=== PATIENT | male | born 1955 | race Caucasian/White ===

== ENCOUNTER 2016-05-20 10:38 | Day surgery (SDC) | payer OTHER ==
[2016-05-14 17:46] LABS: HEMATOCRIT 48.5 % (40.0-51.0); HEMOGLOBIN 16.2 g/dL (13.6-17.8)
[2016-05-14 17:58] LABS: BUN (BLOOD UREA NITROGEN) 14 MG/DL (6-23); CALCIUM, SERUM 9.4 MG/DL (8.5-10.4); CHLORIDE, SERUM 108 MMOL/L (96-112); CO2 (CARBON DIOXIDE) 28 MMOL/L (24-34); CREATININE 1.07 MG/DL (0.70-1.30); GFR AFRICAN AMERICAN 86 ML/MIN (>=60); GFR NON AFRICAN AMERICAN 74 ML/MIN (>=60); GLUCOSE, SERUM 106 MG/DL (60-99); POTASSIUM, SERUM 4.5 MMOL/L (3.5-5.3); SODIUM, SERUM 145 MMOL/L (135-148)
[2016-05-14 17:59] LABS: ASCORBIC ACID (UR NOT ORDER) NEG (NEG); BILIRUBIN, URINE NEGATIVE (NEG); KETONE, URINE NEGATIVE (NEG); LEUKOCYTE ESTERASE(NOT OR NEG (NEG); WBC (NOT ORDERED) (RFLEX) 2 (0-5)
--- NOTE | ~2016-05-20 | OP ---
Record Of Operation [facility] [address] [place]. [address] NAME: DORIAN MONAHAN : 51 STATUS : [facility]#: [id number] AGE: 60 ADM/REG DATE : 05/20/16 MR#: [id number] REPORT SERV DATE: 05/20/16 DICTATED BY: SIXTO MCKEON JR. DATE: 05/20/16 REPORT STATUS : Draft TRANSCRIBED BY: MODCarlos DATE: 05/20/16 DATE OF PROCEDURE: 05/20/2016 SURGEON: Sixto Mckeon M.D. PREOPERATIVE DIAGNOSIS: Right spermatocele. POSTOPERATIVE DIAGNOSIS: Right spermatocele. PROCEDURE PERFORMED: Excision of right spermatocele. COMPLICATIONS: None. CONSULTATIONS: None. ANESTHESIA: General with laryngeal mask airway. SPECIMENS: Right spermatocele. DRAINS: None. ESTIMATED BLOOD LOSS: 5 mL. INDICATION: Mr. Monahan is a 60-year-old gentleman, who has an increasingly painful right spermatocele, is approximately 3-4 cm in size. He comes today for excision of the spermatocele. PROCEDURE IN DETAIL: After the patient was identified and proper informed consent was obtained, he was taken to the operating room. General anesthesia was performed without complication using a laryngeal mask airway. He was then prepped and draped in the normal sterile fashion in the supine position. A transverse scrotal incision was made across the right hemiscrotum and the testicle was delivered through the dartos fascia. I then opened the hydrocele sac to expose the testicle and spermatocele. The spermatocele was then carefully dissected away from the epididymis taking care to maintain good blood supply of the testicle and not interrupt flow from the epididymis. Once I had the spermatocele dissected out down to its single connection to the epididymis, I ligated this infundibular neck to close it using a 3-0 Vicryl suture and excised the spermatocele and sent that to Pathology for evaluation. I then inspected for hemostasis. I irrigated the testicle as well as the scrotum. I replaced the testicle in its normal position into the scrotal compartment and closed the skin and dartos muscle in two layers of 3-0 chromic in a running locking fashion of the dartos fascia and then a 3-0 chromic running in the skin. Fluffs and a scrotal support were used for dressing. The patient was awakened in the operating room and transferred to the postanesthesia care unit in stable condition. I will see him back in the office in two weeks for followup. Record Of [place] [address] [facility] [place]. [address] NAME: DORIAN MONAHAN : 51 STATUS : [facility] PAT#: [id number] AGE: 60 ADM/REG DATE : 05/20/16 MR#: [id number] REPORT SERV DATE: 05/20/16 DICTATED BY: SIXTO MCKEON JR. DATE: 05/20/16 REPORT STATUS : Draft TRANSCRIBED BY: THERESA DATE: 05/20/16 IVAN/THERESA Sixto Mckeon Jr., M.D. / [id number] CC: Jesse Topete Jr., M.D.
[~2016-05-20 10:38] MED LIST: ALLEGRA180 PO; DIOV160 PO; FLONASE NAS; PRILO PO; SINGULAIR1 PO; SUPER BETA PROSTATE PO; SYMBICORT 160/41 INH INH; VITAMIN D31000 UNIT PO
[2016-09-23] MEDS ORDERED: HYDROCHLOROT25 MG PO (14:03)
[2016-09-23] MEDS ORDERED: ASAB PO (14:04)
== END 2016-05-20 18:35 | disposition home or self-care (01) ==
LOC: SDC 10:38
PROVIDERS: Urology
PROC: 0VBJ0ZZ Excision of Right Epididymis, Open Approach (ICD-10-PCS; principal; 2016-05-20 12:45)
DX: N43.40 Spermatocele of epididymis, unspecified (principal); L91.8 Other hypertrophic disorders of the skin; I10 Essential (primary) hypertension; J45.909 Unspecified asthma, uncomplicated; Z79.899 Other long term (current) drug therapy; Z79.51 Long term (current) use of inhaled steroids; K21.9 Gastro-esophageal reflux disease without esophagitis
CPT/HCPCS: 36415; 80048; 81001; 85014; 85018; 88304; 93005; A9270-GY; J0694; J2250; J2405; J3010